=== PATIENT | male | born 1935 | race Caucasian/White ===

== ENCOUNTER 2017-11-28 11:06 | Inpatient (IN) | payer MEDICARE, BC ==
[~2017-11-28] VITALS: Ht 165.1 cm; Wt 70.3 kg
[~2017-11-28 11:06] MED LIST: AMLO5TAB4 PO; ARMO150T2 PO; ATOR20TA PO; CALC-167 PO; CYAN500T4 PO; FURO20TA4 PO; POTA-88 PO; RAMI10CA PO; TRAM50TA2 PO; TRAZ-182 PO; WARF3TAB29 PO
--- NOTE | 2017-11-28 11:15 | NUR ---
R knee pain s/p near syncopal episode last night, denies any neck or back pain, NAD NOTED, VSS, Resp even and unlabored, pt was put on monitor, waiting for md mcneal.
[2017-11-28 11:56] LABS: BASOPHILS % (AUTO) 0.2 % (0.0-2.0); EOSINOPHILS % (AUTO) 0.1 % (0.0-6.0); HEMATOCRIT 40 % (39-51); HEMOGLOBIN 13.2 g/dL (13.5-17.5); LYMPHOCYTES # (AUTO) 1.1 /CMM (0.8-4.8); LYMPHOCYTES % (AUTO) 15.5 % (20.0-44.0); MEAN CORPUSCULAR HEMOGLOBIN 33 PG (26.0-33.0); MEAN CORPUSCULAR HGB CONC 33 g/dl (31.0-36.0); MEAN CORPUSCULAR VOLUME 100 fL (80-96); MONOCYTES # (AUTO) 0.7 /CMM (0.1-1.30); MONOCYTES % (AUTO) 9.8 % (2.0-12.0); NEUTROPHILS # (AUTO) 5.3 /CMM (1.8-8.9); NEUTROPHILS % (AUTO) 74.4 % (43.0-81.0); PLATELET COUNT (AUTO) 177 /CMM (150-450); RDW COEFFICIENT OF VARIATION 12.8 (11.5-15.0); RED BLOOD CELL COUNT(AUTO) 3.99 MIL/uL (4.5-6.0); WHITE BLOOD COUNT (AUTO) 7.1 K/uL (4.3-11.0)
[2017-11-28] MEDS ORDERED: IV NS 0.9% 500 ML BAG IV ONE (12:00)
[2017-11-28 12:04] LABS: CARBON DIOXIDE 29 mmol/L (21-32); CHLORIDE 102 mmol/L (98-107); CREATININE 0.8 mg/dL (0.6-1.3); GLUCOSE 195 mg/dL (74-106); POTASSIUM 3.9 mmol/L (3.5-5.1); SODIUM SERUM 138 mmol/L (136-145); UREA NITROGEN, BLOOD 27 mg/dL (7-18)
[2017-11-28 12:08] LABS: INR 1.93 (0.85-1.15)
[2017-11-28 12:13] LABS: TROPONIN I < 0.017 ng/mL (0.00-0.056)
--- NOTE | 2017-11-28 13:55 | NUR ---
PAGED [employer] FOR PANEL - BINDING BENCH WORKER JELLY TERAN
[2017-11-28] MEDS ORDERED: KETOROLAC TROMETHAMINE INJ 30 MG/ML VIAL IV ONE (14:30)
[2017-11-28] MEDS ORDERED: KETOROLAC TROMETHAMINE 15 MG/ML VIAL ONE (14:42)
[2017-11-28] MEDS ORDERED: PIOG15TA8 PO (14:51)
[2017-11-28] MEDS ORDERED: D AM PO (14:51)
[2017-11-28] MEDS ORDERED: SILO8CAP PO (14:51)
[2017-11-28] MEDS ORDERED: CALC-475 PO (14:56)
[2017-11-28] MEDS ORDERED: CYAN100010 PO (14:56)
[2017-11-28] MEDS ORDERED: METF500T6 PO (14:56)
[2017-11-28] MEDS ORDERED: RAMI10CA PO (14:56)
[2017-11-28] MEDS ORDERED: TRAM50TA2 PO (14:56)
[2017-11-28] MEDS ORDERED: WARF4TAB41 PO (14:57)
[2017-11-28 15:00] VITALS: BP 128/67
--- NOTE | 2017-11-28 15:20 | NUR ---
OPTICAL LABORATORY TECHNICIAN NOTES PATIENT RECEIVED AWAKE ALERT AND VERBALLY RESPONSIVE, ABLE TO MAKE NEEDS KNOWN. RESPIRATIONS EVEN AND UNLABORED, DENIES ANY PAIN OR DISCOMFORT AT THIS TIME. IV ACCESS TO LEFT HAND PATENT AND INTACT NO REDNESS OR INFILTRATION NOTED. JELLY TERAN SWITCH TECHNICIAN AWARE OF PTS ARRIVAL, WILL CONTINUE TO CARRY OUT ADMISSION ORDERS. PT ORIENTED TO ROOM AND UNIT AND USE OF CALL LIGHT. PICTURES OF SKIN AND TAKEN AND PLACED IN CHART
[2017-11-28] MEDS ORDERED: ACETAMINOPHEN 325 MG TABLET PO PRN (15:30)
[2017-11-28] MEDS ORDERED: Z GUARD REMEDY 2 OZ OINT TP PRN (15:30)
[2017-11-28] MEDS ORDERED: MAGNESIUM HYDROXIDE 30 ML UDC PO PRN (15:30)
[2017-11-28] MEDS ORDERED: ONDANSETRON HCL/PF 4 MG/2 ML VIAL IVP PRN (15:30)
[2017-11-28] MEDS ORDERED: MAG HYDROX/AL HYDROX/SIMETH 30 ML UDC PO PRN (15:30)
[2017-11-28] MEDS: CYANOCOBALAMIN 500 MCG TABLET PO SCH (18:20)
[2017-11-28] MEDS: WARFARIN SODIUM 2 MG TABLET PO SCH (18:24)
[2017-11-28] MEDS: CALCIUM CARB 600MG /VIT D 1 EACH TABLET PO SCH (18:24)
--- NOTE | 2017-11-28 19:20 | NUR ---
TELE/RN OPENING NOTES PT RECEIVED AWAKE, RESTING IN BED. A/OX3. ON ROOM AIR, BREATHING EVEN AND UNLABORED. DENIES SOB AT THIS TIME. NOTES PAIN TO RIGHT LEG "04/03". REQUESTING PAIN MEDICATION. IV TO RIGHT HAND PATENT AND INTACT. BED IN LOW/LOCKED POSITION WITH CALL LIGHT IN REACH. SIDE RAILS UPX3 AND BED ALARM ON FOR SAFETY. WILL CONTINUE TO MONITOR
--- NOTE | 2017-11-28 19:40 | NUR ---
RN CLOSING NOTES PT AWAKE ALERT AND VERBALLY RESPONSIVE, ABLE TO MAKE NEEDS KNOWN. RESPIRATIONS EVEN AND UNLABORED, DENIES ANY PAIN OR DISCOMFORT AT THIS TIME. IV ACCESS TO LEFT HAND PATENT AND INTACT NO REDNESS OR INFILTRATION NOTED. PT ORIENTED TO ROOM AND UNIT AND USE OF CALL LIGHT. PICTURES OF SKIN AND TAKEN AND PLACED IN CHART, KEPT CLEAN DRY AND COMFORTABLE, WILL CONTINUE TO MONITOR, ENDORSED TO NEXT SHIFT FOR CONTINUITY OF CARE
[2017-11-28] MEDS: HYDROCODONE/APAP 10/325MG 1 EA TABLET PO PRN (19:58)
[2017-11-28 20:00] VITALS: BP 141/67
--- NOTE | 2017-11-28 20:00 | NUR ---
TELE/RN NOTES PT C/O PAIN TO RIGHT LEG "04/03". ADMINISTERED PRN NORCO 10/325MG PO ORDERED.
[2017-11-29] VITALS: BP 127/66
[2017-11-29 04:00] VITALS: BP 148/70
[2017-11-29] MEDS: HYDROCODONE/APAP 10/325MG 1 EA TABLET PO PRN (06:29)
--- NOTE | 2017-11-29 06:43 | NUR ---
TELE/RN NOTES PT C/O PAIN TO RIGHT LEG. ADMINISTERED PRN NORCO 10/325 ORDERED. NEW IV INSERTED TO RIGHT HAND #22.
--- NOTE | 2017-11-29 06:50 | NUR ---
TELE/RN CLOSING NOTES PT ASLEEP, EASILY AROUSABLE TO NAME. A/OX2-3, FORGETFUL AT TIMES. REMAINS ON ROOM AIR, BREATHING EVEN AND UNLABORED. DENIES SOB AND PAIN AT THIS TIME. IV TO RIGHT HAND PATENT AND INTACT. TELE MONITOR SHOWS A.FIB CONTROLLED WITH BBB AND PVC'S, HR 74. NO SIGNIFICANT CHANGES OVERNIGHT. KEPT PT COMFORTABLE DURING SHIFT. ALL NEEDS MET. ENCOURAGED PO INTAKE. BED IN LOW/LOCKED POSITION WITH CALL LIGHT IN REACH. SIDE RAILS UPX3 AND BED ALARM ON FOR SAFETY. WILL ENDORSE TO DAY SHIFT RN BLANCA
[2017-11-29 07:12] LABS: BASOPHILS % (AUTO) 0.1 % (0.0-2.0); EOSINOPHILS % (AUTO) 1.1 % (0.0-6.0); HEMATOCRIT 39 % (39-51); HEMOGLOBIN 12.9 g/dL (13.5-17.5); LYMPHOCYTES # (AUTO) 2.3 /CMM (0.8-4.8); LYMPHOCYTES % (AUTO) 29.7 % (20.0-44.0); MEAN CORPUSCULAR HEMOGLOBIN 35 PG (26.0-33.0); MEAN CORPUSCULAR HGB CONC 34 g/dl (31.0-36.0); MEAN CORPUSCULAR VOLUME 103 fL (80-96); MONOCYTES % (AUTO) 13.3 % (2.0-12.0); NEUTROPHILS # (AUTO) 4.2 /CMM (1.8-8.9); NEUTROPHILS % (AUTO) 55.8 % (43.0-81.0); PLATELET COUNT (AUTO) 153 /CMM (150-450); RDW COEFFICIENT OF VARIATION 13.8 (11.5-15.0); RED BLOOD CELL COUNT(AUTO) 3.73 MIL/uL (4.5-6.0); WHITE BLOOD COUNT (AUTO) 7.6 K/uL (4.3-11.0)
[2017-11-29 07:22] LABS: ALANINE AMINOTRANSFERASE 26 U/L (12-78); ALBUMIN 3.4 g/dL (3.4-5.0); ALKALINE PHOSPHATASE 73 U/L (46-116); ASPARTATE AMINOTRANSFERASE 26 U/L (15-37); BILIRUBIN,TOTAL 1.5 mg/dL (0.2-1.0); CALCIUM, SERUM 8.5 mg/dL (8.5-10.1); CARBON DIOXIDE 30 mmol/L (21-32); CHLORIDE 104 mmol/L (98-107); CREATININE 0.9 mg/dL (0.6-1.3); GLUCOSE 150 mg/dL (74-106); PHOSPHORUS 2.8 mg/dL (2.5-4.9); POTASSIUM 3.6 mmol/L (3.5-5.1); SODIUM SERUM 140 mmol/L (136-145); TOTAL PROTEIN, SERUM 6.6 g/dL (6.4-8.2); UREA NITROGEN, BLOOD 23 mg/dL (7-18)
--- NOTE | 2017-11-29 07:26 | NUR ---
RN OPENING NOTES PT ASLEEP EASILY AROUSABLE DURING CARE AND VERBALLY RESPONSIVE, ABLE TO MAKE NEEDS KNOWN. RESPIRATIONS EVEN AND UNLABORED, DENIES ANY PAIN OR DISCOMFORT AT THIS TIME. IV ACCESS TO RIGHT HAND PATENT AND INTACT NO REDNESS OR INFILTRATION NOTED. PT ORIENTED TO ROOM AND UNIT AND USE OF CALL LIGHT. KEPT CLEAN DRY AND COMFORTABLE, WILL CONTINUE TO MONITOR
[2017-11-29 07:30] LABS: CHOLESTEROL 82 mg/dL (<200); HDL CHOLESTEROL 49 mg/dL (40-60); LDL 34 mg/dL (0-99); TRIGLYCERIDES 41 mg/dL (30-150)
[2017-11-29 08:00] VITALS: BP 107/65
[2017-11-29] MEDS: CALCIUM CARB 600MG /VIT D 1 EACH TABLET PO SCH (08:24)
[2017-11-29] MEDS: PIOGLITAZONE HCL 15 MG TABLET PO SCH (08:25)
[2017-11-29] MEDS: CYANOCOBALAMIN 500 MCG TABLET PO SCH (08:25)
[2017-11-29] MEDS: ATORVASTATIN 10 MG TABLET PO SCH (08:25)
[2017-11-29] MEDS: AMLODIPINE BESYLATE 5 MG TABLET PO SCH (09:00)
[2017-11-29] MEDS: RAMIPRIL 5 MG CAPSULE PO SCH (09:00)
[2017-11-29] MEDS ORDERED: Medication Not On Formulary EA (Silodosin (Rapaflo) 8 MG) PO SCH (09:00)
[2017-11-29] MEDS ORDERED: DEXTROAMPHETAMINE SULFATE 5 MG PO SCH (09:00)
[2017-11-29 13:29] LABS: INR 2.17 (0.87-1.13)
[2017-11-29] MEDS: HYDROCODONE/APAP 5/325MG 1 EACH TABLET PO PRN ×2 (15:08→20:00)
--- NOTE | 2017-11-29 15:30 | NUR ---
RN NOTES/ CT OF HEAD FOLLOW-UP RN CALLED RADIOLOGY TO FOLLOW-UP REGARDING CT OF HEAD. PER RADIOLOGY THEY ARE DOING EMERGENT CASES IN ER. CT TO BE DONE SOON POSSIBLE.
[2017-11-29 16:00] VITALS: BP 119/79
[2017-11-29] MEDS ORDERED: WARFARIN SODIUM 1 MG TABLET PO SCH (17:00)
--- NOTE | 2017-11-29 17:28 | NUR ---
Patient is alert,he lives at home with . Prior to admission, he was ambulatroy and independent with adl's. He use a walker as needed. No homehealth reported. Family is involved with curreNt plan of care. Patient is a good candidate for ARU per PT, will discuss with patient. Addendum: 11/29/17 at 1729 by CHESTER BURRIS RN Amended: Links added.
--- NOTE | 2017-11-29 17:29 | NUR ---
Patient is alert,he lives at home with . Prior to admission, he was ambulatory and independent with adl's. He use a walker as needed. No homehealth reported. Family is involved with current plan of care. Patient is a good candidate for ARU per PT, will discuss with patient. Addendum: 11/29/17 at 1729 by CHESTER BURRIS RN Amended: Links added.
--- NOTE | 2017-11-29 18:20 | NUR ---
Spoke with patient,discussed dc planning options. Patient prefer to go to ARU when discharge. ARU Referral sent to Ngozi MCGINNIS. Addendum: 11/29/17 at 1822 by CHESTER BURRIS RN Amended: Links added.
--- NOTE | 2017-11-29 18:37 | NUR ---
RN CLOSING NOTES PT AWAKE ALERT AND VERBALLY RESPONSIVE, ABLE TO MAKE NEEDS KNOWN. RESPIRATIONS EVEN AND UNLABORED, VERBALIZES PAIN UPON MOVEMENT, PAIN MEDICATION ADMINISTERED PRN. IV ACCESS TO RIGHT HAND PATENT AND INTACT NO REDNESS OR INFILTRATION NOTED. PT ORIENTED TO ROOM AND UNIT AND USE OF CALL LIGHT. KEPT CLEAN DRY AND COMFORTABLE, WILL CONTINUE TO MONITOR, AND WILL ENDORSE TO NEXT SHIFT FOR CONTINUITY OF CARE
--- NOTE | 2017-11-29 19:00 | NUR ---
FLORICULTURE TEACHER OPENING NOTE Patient was seen sitting up in bed AAOx3, breathing on RA with no SOB, and no signs of acute distress. Telemonitor shows a-fib with bundle branch block, HR in the 70s. SL 22g IV in the right hand is intact and patent. Assisted patient with use of the urinal (125 ml out clear, dark yellow). Patient complains of pain in the right knee/upper leg with movement (s/p recent fall); will provide Reedy when due. Bed is in the low/locked position, two side rails up, and call flores within reach. Patient educated on use of the call flores. Patient has no immediate needs at this time. Will continue to monitor.
[2017-11-29 20:00] VITALS: BP 126/74
--- NOTE | 2017-11-29 20:00 | NUR ---
LIME MIXER NOTE - [place] Patient requested [place] for right knee and right upper leg pain (s/p recent fall). Patient rates his pain at an 8/10 with movement and repositioning in bed. PO [place] 5/325mg was given as ordered for prn use. Vital signs stable. Will continue to monitor.
[2017-11-30] VITALS: BP 148/77
[2017-11-30 04:00] VITALS: BP_SYST 111; BP_SYST 132; BP_DIAS 68; BP_DIAS 69
--- NOTE | 2017-11-30 06:50 | NUR ---
PLATE SHOP HELPER CLOSING NOTE Patient was seen sleeping in bed but awoke easily to name. He is AAOx2, breathing on RA with no SOB, and currently no signs of acute distress. Telemonitor shows a-fib with BBB, HR in the 80s. Patient slept well overnight with no complications and remains in stable condition. Patient's only complaint is right knee pain, which is well controlled using PO [place]. IV in the right hand is intact and patent. Bed is low/locked, two side rails up, and call flores within reach. All patient needs have been addressed this shift. Patient care endorsed to day shift nurse.
[2017-11-30 08:00] VITALS: BP 146/76
--- NOTE | 2017-11-30 08:45 | NUR ---
MS RN NOTES RECEIVED PATIENT IN BED ALERT ORIENTED X 4. NO ACUTE DISTRESS NOTED. BREATHING UNLABORED. NO SOB NOTED. IV ACCESS PATENT AND INTACT, NO REDNESS OR SWELLING NOTED. SAFETY MEASURES IN PLACE. CALL LIGHT WITHIN REACH. WILL CONTINUE TO MONITOR ACCORDINGLY.
[2017-11-30] MEDS: PIOGLITAZONE HCL 15 MG TABLET PO SCH (08:59)
[2017-11-30] MEDS: ATORVASTATIN 10 MG TABLET PO SCH (08:59)
[2017-11-30] MEDS: CALCIUM CARB 600MG /VIT D 1 EACH TABLET PO SCH (08:59)
[2017-11-30] MEDS: CYANOCOBALAMIN 500 MCG TABLET PO SCH (08:59)
[2017-11-30] MEDS: RAMIPRIL 5 MG CAPSULE PO SCH (09:00)
[2017-11-30] MEDS: AMLODIPINE BESYLATE 5 MG TABLET PO SCH (09:00)
--- NOTE | 2017-11-30 14:27 | NUR ---
MS RN NOTES SEEN AND EVALUATED BY DR DON REYNA WITH NEW ORDERS MADE, NOTED AND CARRIED OUT.
[2017-11-30 16:00] VITALS: BP 139/61
[2017-11-30 17:55] LABS: INR 2.37 (0.87-1.13)
[2017-11-30] MEDS: WARFARIN SODIUM 2 MG TABLET PO SCH (18:09)
--- NOTE | 2017-11-30 18:15 | NUR ---
MS DISCHARGE NOTES PATIENT DISCHARGED TO [facility] WITH STABLE VITAL SIGNS. NO ACUTE DISTRESS NOTED. BREATHING UNLABORED. NO SOB NOTED. IV ACCESS REMOVED, NO BLEEDING , NO REDNESS OR SWELLING NOTED. DISCHARGE INSTRUCTIONS GIVEN TO THE PATIENT , VERBALIZED UNDERSTANDING. REPORT GIVEN TO MARIA FERNANDA OF [facility]. DISCHARGE PAPERS HANDED OVER TO EMT PERSONNEL. PATIENT PICKED UP VIA AMBULANCE IN A GURNEY ACCOMPANIED BY 2 EMT PERSONNEL IN STABLE CONDITION. ALL BELONGINGS ACCOUNTED FOR. AWARE OF THE TRANSFER.
== END 2017-11-30 18:23 | DRG 312 ==
LOC: ER 11:07 → TELE 14:46 → MED 11-30 12:38
PROVIDERS: ADMIT Nurse Practitioner Acute Care; ATTEND Nurse Practitioner Acute Care
DX: R55 Syncope and collapse (principal); N17.0 Acute kidney failure with tubular necrosis; I50.32 Chronic diastolic (congestive) heart failure; I45.2 Bifascicular block; I11.0 Hypertensive heart disease with heart failure; I48.2 Chronic atrial fibrillation; E11.9 Type 2 diabetes mellitus without complications; E78.5 Hyperlipidemia, unspecified; Z86.73 Personal history of transient ischemic attack (TIA), and cerebral infarction without residual deficits; Z79.01 Long term (current) use of anticoagulants; E86.0 Dehydration; M79.661 Pain in right lower leg; Z79.84 Long term (current) use of oral hypoglycemic drugs
CPT/HCPCS: 36415; 70450-TC; 71045-TC; 73502; 73562; 73700-TC; 80048-TC; 80053-TC; 80061-TC; 83735-TC; 83880; 84100-TC; 84443-TC; 84484-TC; 85025-TC; 85610-TC; 85730-TC; 87081-TC; 93307-TC; 93880-TC; 97110-TC; 97530-TC; A4606; J1885; J7040; Z7610

== ENCOUNTER 2018-10-23 16:59 | Emergency (ER) | payer MEDICARE, BC ==
[~2018-10-23] VITALS: Ht 162.6 cm; Wt 73.5 kg
[~2018-10-23 16:59] MED LIST changes: -ARMO150T2 PO; -CALC-167 PO; +CALC-475 PO; +CYAN100010 PO; -CYAN500T4 PO; +D AM PO; -FURO20TA4 PO; +METF-440 PO; +PIOG15TA8 PO; -POTA-88 PO; -RAMI10CA PO; +RAMI10CA69 PO; +SILO8CAP2 PO; -TRAZ-182 PO; +WARF4TAB41 PO
--- NOTE | 2018-10-23 17:00 | NUR ---
BIB RA 102 FROM HOME, RIGHT THIGH/HIP PAIN, S/P GLF,NO LOC. PATIENT A/OX3, NO VISIBLE INJURY NOTED, AT AND CAREGIVER AT BEDSIDE. ATTACHED TO THE MONITOR.
[2018-10-23] MEDS ORDERED: oxyCODONE/APAP (5/325 MG) 1 UDTAB TABLET ONE (17:51)
[2018-10-23] MEDS ORDERED: oxyCODONE/APAP (5/325 MG) 1 UDTAB TABLET PO ONE (18:00)
--- NOTE | 2018-10-23 18:58 | NUR ---
CALLED [facility] FOR MONICA PERRY PT.
[2018-10-23] MEDS ORDERED: SERT25TA PO (19:00)
[2018-10-23] MEDS ORDERED: LOSA50TA39 PO (19:00)
--- NOTE | 2018-10-23 19:00 | NUR ---
Per md's instruction, try to walk the patient to evaluate gait, walker ordered.
--- NOTE | 2018-10-23 19:17 | NUR ---
Endorsed to Leanna WILD for emmanuel.
--- NOTE | 2018-10-23 20:19 | NUR ---
LION PAGED, COMPONENT INSPECTOR.
--- NOTE | 2018-10-23 20:39 | NUR ---
PT TAKEN TO CT.
--- NOTE | 2018-10-23 20:40 | NUR ---
PT RETURNED FROM CT.
--- NOTE | 2018-10-23 20:47 | NUR ---
EXPLOSIVE OPERATOR FUSE AT BEDSIDE. LABS DRAWN FROM 20G LAC IV, SENT TO LAB.
--- NOTE | 2018-10-23 20:52 | NUR ---
EKG AT BEDSIDE.
[2018-10-23 20:54] LABS: WHITE BLOOD COUNT (AUTO) 7.8 K/uL (4.3-11.0)
[2018-10-23 20:55] LABS: BASOPHILS % (AUTO) 0.2 % (0.0-2.0); EOSINOPHILS % (AUTO) 0.4 % (0.0-6.0); HEMATOCRIT 40 % (39-51); HEMOGLOBIN 13.4 g/dL (13.5-17.5); LYMPHOCYTES # (AUTO) 1.9 /CMM (0.8-4.8); LYMPHOCYTES % (AUTO) 24.1 % (20.0-44.0); MEAN CORPUSCULAR HGB CONC 34 g/dl (31.0-36.0); MEAN CORPUSCULAR VOLUME 103 fL (80-96); MONOCYTES # (AUTO) 0.6 /CMM (0.1-1.30); MONOCYTES % (AUTO) 7.7 % (2.0-12.0); NEUTROPHILS # (AUTO) 5.3 /CMM (1.8-8.9); NEUTROPHILS % (AUTO) 67.6 % (43.0-81.0); PLATELET COUNT (AUTO) 138 /CMM (150-450); RED BLOOD CELL COUNT(AUTO) 3.83 MIL/uL (4.5-6.0)
[2018-10-23 21:12] LABS: CALCIUM, SERUM 9.2 mg/dL (8.5-10.1); CARBON DIOXIDE 33 mmol/L (21-32); CHLORIDE 103 mmol/L (98-107); CREATININE 0.9 mg/dL (0.6-1.3); GLUCOSE 155 mg/dL (74-106); SODIUM SERUM 142 mmol/L (136-145); UREA NITROGEN, BLOOD 26 mg/dL (7-18)
--- NOTE | 2018-10-23 22:15 | NUR ---
PT COMPLAINING OF PAIN, ER MD AWARE. WILL CONTINUE TO MONITOR.
--- NOTE | 2018-10-23 22:23 | NUR ---
CALLED NURSING SUP. FOR MS BED
[2018-10-23] MEDS ORDERED: FENTANYL PF 100MCG/2ML AMPUL IV ONE (22:30)
[2018-10-23] MEDS ORDERED: FENTANYL PF 100MCG/2ML AMPUL ONE (22:40)
--- NOTE | 2018-10-23 23:14 | NUR ---
CALLED JANET SALMERON MASKING MACHINE FEEDER, TRANSFERRED CALL TO
--- NOTE | 2018-10-23 23:18 | NUR ---
CALLED [facility] TO PRESENT PT FOR HLOC TRANSFER, [place] NOAH [place] [facility] [place]OB [place]ERS AT THIS TIME.
--- NOTE | 2018-10-23 23:28 | NUR ---
PATIENT REQUIRING HIGHER LEVEL OF CARE PER ER MD. AWAITING CT RESULTS AND ACCEPTANCE FROM TRAUMA FACILITY.
[2018-10-23] MEDS ORDERED: HYDROCODONE/APAP 5/325MG 1 EACH TABLET PO PRN (23:30)
[2018-10-23] MEDS ORDERED: Z GUARD REMEDY 2 OZ OINT TP PRN (23:30)
[2018-10-23] MEDS ORDERED: MAG HYDROX/AL HYDROX/SIMETH 30 ML UDC PO PRN (23:30)
[2018-10-23] MEDS ORDERED: ACETAMINOPHEN 325 MG TABLET PO PRN (23:30)
[2018-10-23] MEDS ORDERED: ONDANSETRON HCL/PF 4 MG/2 ML VIAL IVP PRN (23:30)
[2018-10-23] MEDS ORDERED: MAGNESIUM HYDROXIDE 30 ML UDC PO PRN (23:30)
[2018-10-23] MEDS ORDERED: MORPHINE SULFATE INJ 2 MG/ML DISP.SYRIN IV PRN (23:30)
[2018-10-23] MEDS ORDERED: ZOLPIDEM TARTRATE 5 MG TABLET PO PRN (23:30)
--- NOTE | 2018-10-23 23:31 | NUR ---
CALLED [facility], SPOKE WITH CHARGE NURSE ESTELLE, HE SAID HE WILL PRESENT IT TO THEIR TRAUMA SURGEON AND HE WILL CALL US BACK.
--- NOTE | 2018-10-23 23:51 | NUR ---
PT TAKEN TO CT VIA RYADIRA.
[2018-10-23] MEDS ORDERED: CT SWABBABLE VALVE TRANS SET 1 EA INFUS.SET MC ONE (23:52)
[2018-10-23] MEDS ORDERED: IOHEXOL-350 100 ML VIAL IV ONE (23:52)
[2018-10-23] MEDS ORDERED: IV NS 0.9% 250 ML IV ONE (23:53)
[2018-10-24 00:01] LABS: HEMOGLOBIN 12.6 g/dL (13.5-17.5)
--- NOTE | 2018-10-24 00:10 | NUR ---
[facility] ETA [id number]. TRIP# [id number].
--- NOTE | 2018-10-24 01:10 | NUR ---
REPORT GIVEN TO CHRIS RENEE FOR TRANSPORT.
--- NOTE | 2018-10-24 01:11 | NUR ---
ESTELLE DUPREE RN AT [facility] NOTIFIED PT LEAVING ER FOR TRANSPORT.
[2018-10-24 01:12] VITALS: BP 156/65
[2018-10-24] MEDS ORDERED: METFORMIN 500 MG TABLET PO SCH (08:00)
[2018-10-24] MEDS ORDERED: SERTRALINE HCL 25 MG TABLET PO SCH (09:00)
[2018-10-24] MEDS ORDERED: Medication Not On Formulary EA (Silodosin (Rapaflo) 8 MG) PO SCH (09:00)
[2018-10-24] MEDS ORDERED: LOSARTAN POTASSIUM 50 MG TABLET PO SCH (09:00)
[2018-10-24] MEDS ORDERED: AMLODIPINE BESYLATE 5 MG TABLET PO SCH (09:00)
[2018-10-24] MEDS ORDERED: ATORVASTATIN 10 MG TABLET PO SCH (22:00)
== END 2018-10-24 01:15 | disposition short-term general hospital (02) ==
LOC: ER 17:05 → MED 23:12 → UNDOADMIN 23:12 → ER 10-24 01:15
DX: S32.431A Displaced fracture of anterior column [iliopubic] of right acetabulum, initial encounter for closed fracture (principal); S32.591A Other specified fracture of right pubis, initial encounter for closed fracture; S36.892A Contusion of other intra-abdominal organs, initial encounter; I48.91 Unspecified atrial fibrillation; E78.5 Hyperlipidemia, unspecified; I11.0 Hypertensive heart disease with heart failure; I50.9 Heart failure, unspecified; E11.9 Type 2 diabetes mellitus without complications; Z88.8 Allergy status to other drugs, medicaments and biological substances; Z79.899 Other long term (current) drug therapy; Z85.828 Personal history of other malignant neoplasm of skin; Z86.73 Personal history of transient ischemic attack (TIA), and cerebral infarction without residual deficits; Z79.01 Long term (current) use of anticoagulants; Z79.84 Long term (current) use of oral hypoglycemic drugs; W01.0XXA Fall on same level from slipping, tripping and stumbling without subsequent striking against object, initial encounter; Y93.89 Activity, other specified; Y92.89 Other specified places as the place of occurrence of the external cause; Y99.8 Other external cause status
CPT/HCPCS: 36415; 71045; 73502; 73551; 73560; 73700 ×2; 75635; 80048; 84484; 85025; 85027; 85610; 86850; 87081; 93005; 96374; 99285; J3010; J7050; Q9967; 73552; G0378

== ENCOUNTER 2022-09-06 03:17 | Inpatient (IN) | payer BC, MEDICARE ==
[~2022-09-06] VITALS: Ht 165.1 cm; Wt 69.9 kg
[2022-09-06] VITALS (20 sets, daily range): BP systolic 83–161; BP diastolic 50–134
[~2022-09-06 03:17] MED LIST changes: -CALC-475 PO; -CYAN100010 PO; -D AM PO; +LOSA50TA39 PO; -PIOG15TA8 PO; +SERT25TA PO; -TRAM50TA2 PO; -WARF3TAB29 PO
--- NOTE | 2022-09-06 03:23 | NUR ---
[facility] (cousin)[phone]
[2022-09-06] MEDS ORDERED: ACETAMINOPHEN 650 MG/SUPP.RECT RC ONE ×2 (03:46→04:00)
[2022-09-06] MEDS ORDERED: CEFEPIME 1 GM VIAL ONE (03:54)
[2022-09-06] MEDS ORDERED: VANCOMYCIN 1 GM /D5W 250 ML PB IV ONE (03:54)
[2022-09-06] MEDS ORDERED: IV NS 0.9% 1,000 ML BAG IV ONE ×2 (04:00→06:00)
[2022-09-06] MEDS ORDERED: VANCOMYCIN 1 GM in IV D5W 250 ML IV ONE (04:00)
[2022-09-06] MEDS ORDERED: CEFEPIME 1 GM in IV D5W 50 ML IV ONE (04:00)
--- NOTE | 2022-09-06 04:05 | NUR ---
bxags930, from home, fever, cough, congestion, shivering, 02 90's. On 6 lpm via NC 02 sat 98%. Kept comfortable, will continue to monitor accordingly.
[2022-09-06 04:06] LABS: BASOPHILS % (AUTO) 0.2 % (0.0-2.0); EOSINOPHILS % (AUTO) 0.2 % (0.0-6.0); HEMATOCRIT 35 % (39-51); HEMOGLOBIN 11.7 g/dL (13.5-17.5); LYMPHOCYTES # (AUTO) 0.8 K/uL (0.8-4.8); LYMPHOCYTES % (AUTO) 11.1 % (20.0-44.0); MEAN CORPUSCULAR HGB CONC 33 g/dl (31.0-36.0); MEAN CORPUSCULAR VOLUME 101 fL (80-96); MONOCYTES # (AUTO) 0.2 K/uL (0.1-1.30); MONOCYTES % (AUTO) 3.7 % (2.0-12.0); NEUTROPHILS # (AUTO) 5.8 K/uL (1.8-8.9); NEUTROPHILS % (AUTO) 84.8 % (43.0-81.0); PLATELET COUNT (AUTO) 116 K/uL (150-450); RED BLOOD CELL COUNT(AUTO) 3.52 MIL/uL (4.5-6.0); WHITE BLOOD COUNT (AUTO) 6.8 K/uL (4.3-11.0)
--- NOTE | 2022-09-06 04:06 | NUR ---
covid, urine, and blood drawned and collected and sent to lab.
[2022-09-06 04:13] LABS: CALCIUM, SERUM 8.7 mg/dL (8.5-10.1); CARBON DIOXIDE 23 mmol/L (21-32); CHLORIDE 98 mmol/L (98-107); CREATININE 1.7 mg/dL (0.6-1.3); GLUCOSE 168 mg/dL (74-106); POTASSIUM 3.5 mmol/L (3.5-5.1); SODIUM SERUM 133 mmol/L (136-145); UREA NITROGEN, BLOOD 62 mg/dL (7-18)
[2022-09-06 04:16] LABS: BILIRUBIN,URINE NEGATIVE (NEGATIVE); COLOR,URINE YELLOW (YELLOW); LEUKOCYTE ESTERASE ,URINE 1+ (NEGATIVE); NITRITE, URINE NEGATIVE (NEGATIVE); PH,URINE 5.5 (5.0-8.0); PROTEIN,URINE 1+ mg/dl (NEGATIVE); UGLUCOSE NEGATIVE (NEGATIVE); UROBILINOGEN,URINE 0.2 EU/dL (0.2)
[2022-09-06 04:27] LABS: ALANINE AMINOTRANSFERASE 74 U/L (12-78); ALBUMIN 2.9 g/dL (3.4-5.0); ALKALINE PHOSPHATASE 156 U/L (46-116); ASPARTATE AMINOTRANSFERASE 95 U/L (15-37); BILIRUBIN,DIRECT 0.5 mg/dL (0.0-0.2); TOTAL PROTEIN, SERUM 6.2 g/dL (6.4-8.2)
[2022-09-06 04:40] LABS: BACTERIA,URINE Many /HPF (None Seen); SQUAMOUS EPITHELIAL CELL,UR Few /HPF (None Seen)
[2022-09-06] MEDS ORDERED: NOREPINEPHRINE 8 MG in IV NS 0.9% 250 ML IV ONE (06:00)
[2022-09-06] MEDS ORDERED: NOREPINEPHRINE 8MG/250ML RTU 250 ML IV ONE (06:26)
--- NOTE | 2022-09-06 07:57 | NUR ---
PT RESTING COMFORTABLY IN BED, VITALS ARE WITHIN NORMAL LIMITS.
[2022-09-06] MEDS ORDERED: DEXTROSE 50%-WATER 50 ML DISP.SYRIN IV PRN (08:30)
[2022-09-06] MEDS ORDERED: MAGNESIUM HYDROXIDE 30 ML UDC PO PRN (08:30)
[2022-09-06] MEDS ORDERED: ONDANSETRON HCL/PF 4 MG/2 ML VIAL IVP PRN (08:30)
[2022-09-06] MEDS ORDERED: MAG HYDROX/AL HYDROX/SIMETH 30 ML UDC PO PRN (08:30)
[2022-09-06] MEDS ORDERED: ACETAMINOPHEN 325 MG TABLET PO PRN (08:30)
[2022-09-06] MEDS ORDERED: Z GUARD REMEDY 4 OZ OINT TP PRN (08:30)
[2022-09-06] MEDS ORDERED: ZOLPIDEM TARTRATE 5 MG TABLET PO PRN (08:30)
[2022-09-06] MEDS ORDERED: NOREPINEPHRINE 8 MG in IV NS 0.9% 242 ML IV PRN ×2 (08:30→12:00)
--- NOTE | 2022-09-06 10:02 | NUR ---
GOT BED 261 ADMITTING INFORMED.
--- NOTE | 2022-09-06 11:32 | NUR ---
REPORT GIVEN TO HEIDI WILD ICU ROOM 262 FOR BLANCA.
--- NOTE | 2022-09-06 11:50 | NUR ---
PATIENT TRANSFERED AND ADMITTED PER ACLS [facility]
[2022-09-06] MEDS: HEPARIN SODIUM, PORCINE 5000 UNITS/1 ML VIAL SQ SCH ×2 (12:42→22:04)
[2022-09-06] MEDS: PANTOPRAZOLE 40 MG VIAL IV SCH (12:42)
[2022-09-06] MEDS: BLOOD SUGAR DIAGNOSTIC 1 EACH STRIP IN SCH ×3 (12:45→22:36)
[2022-09-06] MEDS: INSULIN REGULAR, HUMAN 100 UNIT/ML 3 ML VIAL SQ PRN (13:02)
[2022-09-06] MEDS: IV D5/ 0.9% NACL 1,000 ML IV PRN (13:33)
--- NOTE | 2022-09-06 17:35 | NUR ---
ICU/RN BLOOD SUGAR 137. PT UNABLE TO SWALLOW SAFELY. ELECTROTYPE SERVICER AMY NOTIFIED, PT PLACED NPO UNTIL SWALLOW EVAL. INSULIN HELD.
--- NOTE | 2022-09-06 17:47 | NUR ---
ICU/RN PT'S SISTER ROSALIA MOONEY [phone] PER PT'S COUSIN IN LAW, PT DOES NOT HAVE CHILDREN AND HIS IS SICK, CURRENTLY ADMITTED TO [facility] AND UNABLE TO MAKE ANY MEDICAL DECISION FOR PT. SISTER IS NEXT OF KIN.
--- NOTE | 2022-09-06 17:52 | NUR ---
ICU/RN BC POSITIVE FOR GRAM VARIBLE RODS. WHEEL OF FORTUNE DEALER AMY NOTIFIED.
--- NOTE | 2022-09-06 19:50 | NUR ---
PLANOGRAMMER OPENING NOTE PT RECEIVED IN BED, ASLEEP, LETHARGIC BUT A/O X2; ORIENTED TO SELF AND ; UNABLE TO STATE YEAR, NOT ORIENTED TO PLACE AND SITUATION; ABLE TO FOLLLOW SIMPLE COMMANDS AND MAKE NEEDS KNOWN. PT ON 4L NC WITH CURRENT O2SAT OF 95%; NO S/S OF RESP DISTRESS, NO SOB, NON-LABORED AND EQUAL BREATHING. PT ATTACHED TO BEDSIDE MONITOR, AFIB CONTROLLED WITH V-PACING, CURRENT HR OF 67. TRAVIS INTACT AND PATENT, DRAINING CLEAR AND YELLOW URINE. IV ACCESS ON RAC 20G, LEFT HAND 20G, AND RIGHT TLC WITH D5NS INFUSING AT 75 ML/HR; LEVO CURRENTLY OFF WITH BP SUSTAINED WNL. BED IN LOWEST POSITION, CALL LIGHT WITHIN REACH, SIDE RAILS UP X3. WILL CONTINUE TO MONITOR THROUGHOUT THE NIGHT.
--- NOTE | 2022-09-06 22:53 | NUR ---
RN NOTE RT AT BEDSIDE TO OBTAINED SPUTUM CX; LAB CALLED FOR PICKUP
[2022-09-07] VITALS (19 sets, daily range): BP systolic 90–149; BP diastolic 41–128
[2022-09-07] MEDS: IV D5/ 0.9% NACL 1,000 ML IV PRN (01:57)
[2022-09-07] MEDS: CEFEPIME 2 GM in IV D5W 100 ML IV SCH (01:57)
[2022-09-07] MEDS ORDERED: VANCOMYCIN HCL 0.75 GM in IV D5W 250 ML IV SCH (04:00)
[2022-09-07 04:56] LABS: BASOPHILS % (AUTO) 0.3 % (0.0-2.0); EOSINOPHILS % (AUTO) 0.1 % (0.0-6.0); HEMATOCRIT 27 % (39-51); HEMOGLOBIN 8.9 g/dL (13.5-17.5); LYMPHOCYTES # (AUTO) 0.8 K/uL (0.8-4.8); LYMPHOCYTES % (AUTO) 9.6 % (20.0-44.0); MEAN CORPUSCULAR HGB CONC 33 g/dl (31.0-36.0); MEAN CORPUSCULAR VOLUME 101 fL (80-96); MONOCYTES # (AUTO) 0.9 K/uL (0.1-1.30); MONOCYTES % (AUTO) 10.3 % (2.0-12.0); NEUTROPHILS # (AUTO) 6.9 K/uL (1.8-8.9); NEUTROPHILS % (AUTO) 79.7 % (43.0-81.0); PLATELET COUNT (AUTO) 72 K/uL (150-450); RED BLOOD CELL COUNT(AUTO) 2.66 MIL/uL (4.5-6.0); WHITE BLOOD COUNT (AUTO) 8.7 K/uL (4.3-11.0)
[2022-09-07 05:47] LABS: CALCIUM, SERUM 7.1 mg/dL (8.5-10.1); CARBON DIOXIDE 19 mmol/L (21-32); CHLORIDE 111 mmol/L (98-107); GLUCOSE 148 mg/dL (74-106); MAGNESIUM 1.9 mg/dL (1.8-2.4); PHOSPHORUS 1.6 mg/dL (2.5-4.9); SODIUM SERUM 139 mmol/L (136-145); UREA NITROGEN, BLOOD 40 mg/dL (7-18)
[2022-09-07 05:55] LABS: LDL 11 mg/dL (0-99); TRIGLYCERIDES 76 mg/dL (30-150)
[2022-09-07 06:06] LABS: HDL CHOLESTEROL 10 mg/dL (40-60)
[2022-09-07 06:13] LABS: CHOLESTEROL 35 mg/dL (<200)
[2022-09-07 06:16] LABS: LYMPHOCYTES % (MANUAL) 12 % (16-48); MONOCYTES % (MANUAL) 4 % (0-11.0); NEUTROPHILS % (MANUAL) 84 (42-76)
--- NOTE | 2022-09-07 06:46 | NUR ---
RN NOTE RECEIVED CRITICAL FROM LAB. PROCALCITONIN 8.86, NOTED TO BE TRENDING UP FROM 5.68. QUYEN YIP NOTIFIED WITH NO NEW ORDERS.
--- NOTE | 2022-09-07 06:47 | NUR ---
POWDERED METAL SUPERVISOR CLOSING NOTE PT REMAINS IN BED, ASLEEP BUT EASILY AROUSABLE; A/O X2, CALM, COOPERATIVE. CONTINUES TO BE ON 4L NC WITH O2SAT RANGING FROM 94%-100% THROUGHOUT THE NIGHT WITH NO S/S OF RESP DISTRESS. ATTACHED TO BEDSIDE MONITOR, AFIB CONTROLLED WITH V-PACING; HR RANGED FROM 60-78. TRAVIS INTACT AND PATENT, DRAINING CLEAR AND YELLOW URINE. RIGHT FEMORAL TLC INTACT AND PATENT, FLUSHES EASILY WITH NO RESISTANCE; D5NS INFUSING AT 75 ML/HR; LEVO REMAINS OFF WITH BP MAINTAINED WNL. ALL DUE MEDS ADMINISTERED DURING THE NIGHT. BED IN LOWEST POSITION, CALL LIGHT WITHIN REACH, SIDE RAILS UP X3. WILL ENDORSE TO DAYSHIFT NURSE TO CONTINUE CARE.
--- NOTE | 2022-09-07 08:02 | NUR ---
WOUND CARE CONSULT: PT PRESENTS WITH AREAS OF SKIN DISCOLORATION, ESPECIALLY UPPER EXTREMITIES AND BLACK DISCOLORATION/LESION TO RT DISTAL GREAT TOE, PRESENT ON ADMISSION. PT INCONTINENT OF LOOSE STOOL WITH SOME BLOOD NOTED. DISCUSSED SKIN PROTECTION WITH NURSING STAFF. DR TIRADO CALLED FOR DPM CONSULT. TRAVIS CATH NOTED.MD IN AGREEMENT WITH PLAN OF CARE.
[2022-09-07] MEDS: PANTOPRAZOLE 40 MG VIAL IV SCH (08:21)
[2022-09-07] MEDS: BLOOD SUGAR DIAGNOSTIC 1 EACH STRIP IN SCH ×4 (08:21→21:48)
[2022-09-07] MEDS: INSULIN REGULAR, HUMAN 100 UNIT/ML 3 ML VIAL SQ PRN ×2 (08:28→17:44)
--- NOTE | 2022-09-07 09:20 | NUR ---
MD OCHOA WAS NOTIFIED OF SMALL AMOUNT OF SOFT/LOOSE STOOL WITH SOME/SCANT AMOUNT OF BLOOD. NO NEW ORDER MADE. MD ALSO AWARE OF RECENT CBC/BMP RESULTS.
[2022-09-07] MEDS: POTASSIUM CL. PREMIX PERIPHER. 50 ML IV SCH ×6 (11:01→16:55)
--- NOTE | 2022-09-07 12:35 | NUR ---
SWALLOW EVALUATION BY SPEECH THERAPIST NOW.
[2022-09-07] MEDS ORDERED: INSU100I47 SQ (13:09)
[2022-09-07] MEDS ORDERED: APIX5TAB PO (13:09)
[2022-09-07] MEDS: IV NS 0.9% 1,000 ML IV SCH (14:46)
--- NOTE | 2022-09-07 15:00 | NUR ---
TELE ADMITTING NOTES: ADMITTED 87YO MALE PT FROM ICU, ENDORSED BY TORRI ALBARRAN. PT ALERT 1-2 AND ABLE TO MAKE NEEDS KNOWN, NO SOB OR CARDIAC DISTRESS NOTED. ON TELE MONITOR WITH CURRENT READING A FIB @70BPM. VS CHECKED AND WITHIN NORMAL LIMITS. O2 INHALATION @2LPM VIA NC AND SATURATING 99%. IV ACCESS ON R HAND GAUGE 22, RAC GAUGE 20, RIGHT FEMORAL PICC LINE, PATENT, INTACT AND INFUSING NS 1L @ 75ML/HR. SKIN ASSESSMENT DONE NOTED WITH SCABS IN HIS CHIN, RIGHT SHOULDER, BILATERAL ARMS SKIN DISCOLORATION, DTI ON R GREAT TOE. TRAVIS CATHETER NOTED DRAINING CLEAR YELLOW COLORED URINE BY GRAVITY. BELONGINGS 1 RED T-SHIRT. ORIENTED TO UNIT, ROOM MATE AND STAFFS. SAFETY MEASURES INITIATED: BED LOCKED AND IN LOWEST POSITION, SIDE RAILS UP X 3 CALL LIGHT IN EASY REACH FOR HELP. WILL MONITOR PT ACCORDINGLY.
--- NOTE | 2022-09-07 15:02 | NUR ---
CARTER-TORRI PICKED UP PATIENT FOR TELE UNIT TRANSFER, BEDSIDE REPORT GIVEN TO DIXON FOR CONTINUITY OF CARE,
[2022-09-07] MEDS ORDERED: K PHOS NEUTRAL 250 MG TABLET PO ONE (16:00)
--- NOTE | 2022-09-07 19:24 | NUR ---
TELE CLOSING NOTES: PT ALERT 1-2 AND ABLE TO MAKE NEEDS KNOWN, NO SOB OR CARDIAC DISTRESS NOTED. ON TELE MONITOR WITH CURRENT READING A FIB @88BPM. O2 INHALATION @2LPM VIA NC AND SATURATING 99%. IV ACCESS ON R HAND GAUGE 22, RAC GAUGE 20, RIGHT FEMORAL PICC LINE, PATENT, INTACT AND INFUSING NS 1L @ 75ML/HR. PT ATE DINNER 100%, NO FEVER, NO COUGHING NOTED.TRAVIS CATHETER NOTED DRAINING CLEAR YELLOW COLORED URINE BY GRAVITY.SAFETY MEASURES MAINTAINED: BED LOCKED AND IN LOWEST POSITION, SIDE RAILS UP X 3 CALL LIGHT IN EASY REACH FOR HELP. WILL MONITOR PT ACCORDINGLY.
--- NOTE | 2022-09-07 19:30 | NUR ---
GRINDING AND POLISHING LABORER OPENING NOTES: RECEIVED PATIENT AWAKE IN BED. PATIENT IS A/O TIMES 1-2 AND ABLE TO MAKE NEEDS KNOWN. NO SOB NOTED. NO CARDIAC DISTRESS NOTED. ON TELE MONITOR READING CONTROLLED A FIB, HR=70. ON 02 INHALATION VIA NASAL CANNULA @2LPM , O2 SAT NOTED 97%. IV ACCESS ON R HAND GAUGE 22, RAC GAUGE 20, RIGHT FEMORAL PICC LINE, PATENT, INTACT AND FLUSHING WELL. IV HYDRATION OF NS @ 75ML/HR RUNNING.TRAVIS CATHETER INTACT AND DRAINING CLEAR YELLOW COLORED URINE BY GRAVITY. ALL SAFETY MEASURES MAINTAINED: BED LOCKED AND IN LOWEST POSITION, SIDE RAILS UP X 3 CALL LIGHT IN EASY REACH . WILL CONTINUE TO MONITOR CLOSELY.
--- NOTE | 2022-09-07 21:51 | NUR ---
RN NOTES 2199 BLOOD SUGAR CHECK RESULT NOTED 135.WILL HELD INSULIN FOR POOR APPETITE AND PATIENT IS SLEEPY.
[2022-09-08] VITALS: BP 109/59
[2022-09-08] MEDS: CEFEPIME 2 GM in IV D5W 100 ML IV SCH ×2 (01:11→20:46)
[2022-09-08] MEDS: IV NS 0.9% 1,000 ML IV SCH (03:15)
[2022-09-08 04:00] VITALS: BP 120/84
[2022-09-08] MEDS ORDERED: VANCOMYCIN 1.25 GM in IV D5W 250 ML IV SCH (04:00)
[2022-09-08 05:49] LABS: BASOPHILS % (AUTO) 0.1 % (0.0-2.0); EOSINOPHILS % (AUTO) 0.3 % (0.0-6.0); HEMATOCRIT 30 % (39-51); LYMPHOCYTES # (AUTO) 1.1 K/uL (0.8-4.8); LYMPHOCYTES % (AUTO) 16.4 % (20.0-44.0); MEAN CORPUSCULAR HGB CONC 34 g/dl (31.0-36.0); MEAN CORPUSCULAR VOLUME 99 fL (80-96); MONOCYTES # (AUTO) 0.8 K/uL (0.1-1.30); NEUTROPHILS # (AUTO) 5.1 K/uL (1.8-8.9); NEUTROPHILS % (AUTO) 72.2 % (43.0-81.0); PLATELET COUNT (AUTO) 113 K/uL (150-450); RED BLOOD CELL COUNT(AUTO) 3.02 MIL/uL (4.5-6.0)
[2022-09-08] MEDS: BLOOD SUGAR DIAGNOSTIC 1 EACH STRIP IN SCH ×4 (06:05→21:32)
--- NOTE | 2022-09-08 06:28 | NUR ---
COMMUNICATIONS TECH CLOSING NOTES: PATIENT AWAKE IN BED. PATIENT IS A/O TIMES 1-2 AND ABLE TO MAKE NEEDS KNOWN. NO SOB NOTED. NO CARDIAC DISTRESS NOTED. ON TELE MONITOR READING CONTROLLED A FIB, HR=80 ON 02 INHALATION VIA NASAL CANNULA @2LPM , O2 SAT NOTED 98%. IV ACCESS ON R HAND GAUGE 22, RAC GAUGE 20, RIGHT FEMORAL PICC LINE, PATENT, INTACT AND FLUSHING WELL. IV HYDRATION OF NS @ 75ML/HR RUNNING.TRAVIS CATHETER INTACT AND DRAINING CLEAR YELLOW COLORED URINE BY GRAVITY. URINE OUTPUT NOTED 650 ML. ALL DUE MEDS GIVEN ORDERED. BLOOD SUGAR CHECKED FOR MORNING NOTED 144. HELD INSULIN FOR BEING SLEEPY AND NOT EATING. ALL SAFETY MEASURES MAINTAINED: BED LOCKED AND IN LOWEST POSITION, SIDE RAILS UP X 3 CALL LIGHT IN EASY REACH . WILL ENDORSE FOR BLANCA.
[2022-09-08 06:40] LABS: CALCIUM, SERUM 8.2 mg/dL (8.5-10.1); CARBON DIOXIDE 22 mmol/L (21-32); CHLORIDE 110 mmol/L (98-107); CREATININE 1.1 mg/dL (0.6-1.3); GLUCOSE 168 mg/dL (74-106); MAGNESIUM 1.9 mg/dL (1.8-2.4); PHOSPHORUS 1.8 mg/dL (2.5-4.9); POTASSIUM 3.3 mmol/L (3.5-5.1); SODIUM SERUM 141 mmol/L (136-145); UREA NITROGEN, BLOOD 34 mg/dL (7-18)
[2022-09-08 07:00] VITALS: BP 123/77
--- NOTE | 2022-09-08 07:49 | NUR ---
EMPLOYEE COMMUNICATIONS SPECIALIST OPENING NOTES: RECEIVED PATIENT AWAKE IN BED, AOX1-2, AND ABLE TO MAKE NEEDS KNOWN AND FOLLOWS SIMPLE COMMANDS, ON 02 INHALATION VIA NC @2LPM, SPO2 @ 96%. NO SOB NOR RESPIRATORY DISTRESS NOTED. ON TELE MONITORING WITH CURRENT READING OF CONTROLLED AFIB WITH UNDERLYING V-PACING, HR OF 76. IV ACCESSES ON R HAND GAUGE 22, RAC GAUGE 20, RIGHT FEMORAL PICC LINE WITH NS RUNNING @ 75ML/HR RUNNING, CLEAN PATENT AND FLUSHING WELL. TRAVIS CATHETER INTACT AND DRAINING CLEAR YELLOW URINE BY GRAVITY. ALL SAFETY MEASURES MAINTAINED: BED LOCKED AND IN LOWEST POSITION, SIDE RAILS UP X 3, CALL LIGHT AND TRAY TABLE WITHIN EASY REACH . WILL CONTINUE TO MONITOR.
[2022-09-08] MEDS: PANTOPRAZOLE 40 MG TABLET.DR PO SCH (09:04)
--- NOTE | 2022-09-08 10:17 | NUR ---
RN NOTES - SCD PUMPS APPLIED ON BOTH LEGS, NO CONTRAINDICATION. LEFT FOREARM G#20 IV ACCESS, LEAKING, REMOVED SAFELY, NO BLEEDING NOTED.
[2022-09-08] MEDS ORDERED: POTASSIUM CHLORIDE 20 MEQ TAB.PRT.SR PO SCH (11:00)
[2022-09-08] MEDS: INSULIN REGULAR, HUMAN 100 UNIT/ML 3 ML VIAL SQ PRN ×3 (11:46→21:34)
[2022-09-08 12:00] VITALS: BP 116/61
[2022-09-08 16:00] VITALS: BP 129/70
[2022-09-08] MEDS ORDERED: K PHOS NEUTRAL 250 MG TABLET PO ONE (16:00)
--- NOTE | 2022-09-08 18:36 | NUR ---
CREEL OPERATOR CLOSING NOTES: PATIENT AWAKE IN BED, AOX1-2, ABLE TO MAKE NEEDS KNOWN AND FOLLOWS SIMPLE COMMANDS, MUMBLES WORDS, STILL ON 02 INHALATION VIA NC @2LPM, SPO2 @ 96%. NO S/SX OF RESPIRATORY DISTRESS. ON TELE MONITORING WITH CURRENT READING OF CONTROLLED AFIB WITH UNDERLYING V-PACING, HR OF 80. IV ACCESSES ON R HAND GAUGE 22 AND RIGHT FEMORAL PICC LINE WITH NS RUNNING @ 75ML/HR RUNNING, CLEAN PATENT AND FLUSHING WELL. TRAVIS CATHETER INTACT AND DRAINED 650 ML OF CLEAR YELLOW URINE. ALL NEEDS MET, ALL DUE MEDS GIVEN. ASPIRATION PRECAUTION MAINTAINED. ALL SAFETY MEASURES KEPT: BED LOCKED AND IN LOWEST POSITION, SIDE RAILS UP X 3, CALL LIGHT AND TRAY TABLE WITHIN EASY REACH .WILL ENDORSE TO PATTERN FINISHER NURSE.
--- NOTE | 2022-09-08 19:30 | NUR ---
DIRECTOR WEIGHTS AND MEASURES OPENING NOTE RECEIVED PATIENT IN BED, WITH EYES CLOSED BUT EASY TO AROUSE AND RESPONDS TO VERBAL AND TACTILE STIMULI. AFEBRILE AND NOT IN ANY FORM OF ACUTE DISTRESS. ON O2 INHALATION VIA NASAL CANNULA AT 2LPM. ON TELE MONITORING WITH CURRENT READING OF CONTROLLED A-FIB WITH V PACING 80. WITH IV ACCESS ON RAC 20 RUNNING WITH NS AT 75ML/HR AND RIGHT FEMORAL PICC LINE-SL. SAFETY MEASURES IN PLACE. KEPT BED IN LOCKED AND IN LOW POSITION. SIDE RAILS UP X2. CALL LIGHT WITHIN EASY REACH.
[2022-09-08 20:00] VITALS: BP 132/67
[2022-09-08] MEDS: IV NS 0.9% 1,000 ML IV PRN (20:47)
[2022-09-09] VITALS: BP 129/66
--- NOTE | 2022-09-09 00:55 | NUR ---
RETIREMENT SALES CONSULTANT NOTE CALLED PHARMACY AND SPOKE WITH SONIA TO VERIFY ORDER FOR CEFEPIME Q12HRS THAT WAS GIVEN ON 2100 THEN ANOTHER ORDER FOR CEFEPIME Q24HRS DUE ON 0200. PER SONIA, KIDNEY FUNCTION IS GETTING BETTER PER LAB RESULT AND THEY MIGHT CHANGED IT FROM Q24HRS. TO Q12HRS. PHARMACIST THEN ADVISED NOT TO GIVE CEFEPIME THAT IS DUE AT 0200. ORDER NOTED AND CARRIED OUT.
[2022-09-09 05:32] VITALS: BP 141/73
[2022-09-09 05:52] LABS: BASOPHILS % (AUTO) 0.1 % (0.0-2.0); EOSINOPHILS % (AUTO) 0.5 % (0.0-6.0); HEMATOCRIT 31 % (39-51); HEMOGLOBIN 10.3 g/dL (13.5-17.5); LYMPHOCYTES # (AUTO) 1.1 K/uL (0.8-4.8); LYMPHOCYTES % (AUTO) 19.8 % (20.0-44.0); MEAN CORPUSCULAR HGB CONC 33 g/dl (31.0-36.0); MEAN CORPUSCULAR VOLUME 99 fL (80-96); MONOCYTES # (AUTO) 0.6 K/uL (0.1-1.30); MONOCYTES % (AUTO) 11.5 % (2.0-12.0); NEUTROPHILS # (AUTO) 3.6 K/uL (1.8-8.9); NEUTROPHILS % (AUTO) 68.1 % (43.0-81.0); PLATELET COUNT (AUTO) 139 K/uL (150-450); RED BLOOD CELL COUNT(AUTO) 3.15 MIL/uL (4.5-6.0); WHITE BLOOD COUNT (AUTO) 5.3 K/uL (4.3-11.0)
[2022-09-09 06:10] LABS: ALBUMIN 2.4 g/dL (3.4-5.0); BILIRUBIN,TOTAL 1.3 mg/dL (0.2-1.0); CALCIUM, SERUM 8.3 mg/dL (8.5-10.1); CREATININE 1.1 mg/dL (0.6-1.3); MAGNESIUM 1.9 mg/dL (1.8-2.4); PHOSPHORUS 2.3 mg/dL (2.5-4.9); POTASSIUM 3.3 mmol/L (3.5-5.1); TOTAL PROTEIN, SERUM 5.4 g/dL (6.4-8.2)
--- NOTE | 2022-09-09 06:29 | NUR ---
ADMINISTRATIVE OFFICE ASSISTANT CLOSING NOTE PATIENT IN BED, ASLEEP, BUT EASY TO AROUSE AND RESPONDS TO VERBAL AND TACTILE STIMULI. AFEBRILE AND NOT IN ANY FORM OF ACUTE DISTRESS. ON O2 INHALATION VIA NASAL CANNULA AT 2LPM. ON TELE MONITORING WITH CURRENT READING OF CONTROLLED A-FIB WITH V PACING 70. WITH IV ACCESS ON RAC 20 RUNNING WITH NS AT 75ML/HR AND RIGHT FEMORAL PICC LINE-SL. MONITORED FOR ANY S/SX. OF HYPO/HYPERGLYCEMIA. MEDICATED ORDERED. CONTINUOUS ON IV ATB, MONITORED FOR ANY ADVERSE REACTION. SAFETY MEASURES IN PLACE. KEPT BED IN LOCKED AND IN LOW POSITION. SIDE RAILS UP X2. CALL LIGHT WITHIN EASY REACH. ALL NURSING NEEDS ATTENDED. ENDORSED TO INCOMING SHIFT FOR CONTINUITY OF CARE.
[2022-09-09] MEDS: BLOOD SUGAR DIAGNOSTIC 1 EACH STRIP IN SCH ×4 (06:42→21:37)
[2022-09-09] MEDS: INSULIN REGULAR, HUMAN 100 UNIT/ML 3 ML VIAL SQ PRN ×4 (06:44→21:41)
--- NOTE | 2022-09-09 07:45 | NUR ---
SACK REPAIRER OPENING NOTE RECEIVED PATIENT IN BED, WITH EYES CLOSED BUT EASY TO AROUSE AND RESPONDS TO VERBAL AND TACTILE STIMULI. AFEBRILE AND NOT IN ANY FORM OF ACUTE DISTRESS. ON O2 INHALATION VIA NASAL CANNULA AT 2LPM. ON TELE MONITORING WITH CURRENT READING OF CONTROLLED A-FIB WITH V PACING 80. WITH IV ACCESS ON RAC 20 RUNNING WITH NS AT 75ML/HR AND RIGHT FEMORAL PICC LINE-SL PATENT, INTACT, AND INFUSING WELL. SAFETY MEASURES IN PLACE. KEPT BED IN LOCKED AND IN LOW POSITION. SIDE RAILS UP X2. CALL LIGHT WITHIN EASY REACH. WILL CONTINUE TO MONITOR PATIENT.
[2022-09-09 08:27] VITALS: BP 124/84
[2022-09-09] MEDS: PANTOPRAZOLE 40 MG TABLET.DR PO SCH (08:43)
[2022-09-09] MEDS ORDERED: POTASSIUM CHLORIDE 20 MEQ TAB.PRT.SR PO ONE (09:30)
[2022-09-09] MEDS: CEFEPIME 2 GM in IV D5W 100 ML IV SCH (10:33)
[2022-09-09] MEDS: IV NS 0.9% 1,000 ML IV PRN (10:40)
[2022-09-09] MEDS: ENOXAPARIN SODIUM 40 MG/0.4 ML DISP.SYRIN SQ SCH (10:56)
[2022-09-09] MEDS ORDERED: POTASSIUM CHLORIDE 20 MEQ POWDER PACKET PO ONE (11:00)
[2022-09-09 11:56] VITALS: BP 126/62
[2022-09-09 13:37] LABS: BAND % (MANUAL) 3 % (0.0-5.0); BASOPHILS % (MANUAL) 0 % (0.0-2.0); EOSINOPHILS % (MANUAL) 0 % (0-4); LYMPHOCYTES % (MANUAL) 16 % (16-48); MONOCYTES % (MANUAL) 9 % (0-11.0); NEUTROPHILS % (MANUAL) 72 (42-76)
[2022-09-09] MEDS: CEFTRIAXONE 2 G in IV D5W 100 ML IV SCH (13:45)
--- NOTE | 2022-09-09 15:52 | NUR ---
RN NOTE PATIENT DC TO TELE. TELE MONITOR HANDED TO JESSICA. WILL CONTINUE TO MONITOR PATIENT.
[2022-09-09] MEDS ORDERED: NEUTRA PHOS 1 POWD.PACKET PO ONE (16:00)
[2022-09-09 16:13] VITALS: BP 132/76
[2022-09-09] MEDS: IV 1/2NS 1000 ML 1,000 ML IV PRN (16:56)
--- NOTE | 2022-09-09 18:18 | NUR ---
RN CLOSING NOTE PATIENT AWAKE IN BED, A/0X3, AFEBRILE AND NOT IN ANY FORM OF ACUTE DISTRESS. ON O2 INHALATION VIA NASAL CANNULA AT 2LPM. WITH IV ACCESS ON RAC 20G RUNNING WITH 1/2 NS AT 75MLS/HR. PATENT, INTACT, AND INFUSING WELL. RIGHT FEMORAL PICC LINE-SL PATENT AND INTACT. DUE MEDS GIVEN. CONTINUOUS ON IV ATB AND MONITORED FOR ANY ADVERSE REACTION. SAFETY MEASURES IN PLACE. KEPT BED IN LOCKED AND IN LOW POSITION. SIDE RAILS UP X2. CALL LIGHT WITHIN EASY REACH. ALL NURSING NEEDS ATTENDED. WILL ENDORSE TO THE CLINICAL RESEARCH ADMINISTRATOR NURSE FOR CONTINUITY OF CARE.
--- NOTE | 2022-09-09 19:30 | NUR ---
MS RN OPENING NOTE RECEIVED PATIENT IN BED, WITH EYES CLOSED BUT EASY TO AROUSE AND RESPONSIVE. ABLE TO ANSWER QUESTIONS CORRECTLY. AFEBRILE AND NOT IN ANY FORM OF ACUTE DISTRESS. ON O2 INHALATION VIA NASAL CANNULA AT 2LPM. WITH IV ACCESS ON RAC 20 RUNNING WITH 1/2 NS AT 75ML/HR AND RIGHT FEMORAL PICC LINE-SL. SAFETY MEASURES IN PLACE. KEPT BED IN LOCKED AND IN LOW POSITION. SIDE RAILS UP X2. CALL LIGHT WITHIN EASY REACH.
[2022-09-09 20:00] VITALS: BP_SYST 111; BP_SYST 146; BP_DIAS 75; BP_DIAS 99
[2022-09-10] MEDS: IV 1/2NS 1000 ML 1,000 ML IV PRN ×2 (04:56→20:32)
--- NOTE | 2022-09-10 06:30 | NUR ---
MS RN CLOSING NOTE PATIENT IN BED, ASLEEP, BUT EASY TO AROUSE AND RESPONDS TO VERBAL AND TACTILE STIMULI. AFEBRILE AND NOT IN ANY FORM OF ACUTE DISTRESS. ON O2 INHALATION VIA NASAL CANNULA AT 2LPM. WITH IV ACCESS ON RAC 20 RUNNING WITH 1/2 NS AT 75ML/HR AND RIGHT FEMORAL PICC LINE-SL. MONITORED FOR ANY S/SX. OF HYPO/HYPERGLYCEMIA. DUE MEDS GIVEN. CONTINUOUS ON IV ATB, MONITORED FOR ANY ADVERSE REACTION. SAFETY MEASURES IN PLACE. KEPT BED IN LOCKED AND IN LOW POSITION. SIDE RAILS UP X2. CALL LIGHT WITHIN EASY REACH. ALL NURSING NEEDS ATTENDED. ENDORSED TO INCOMING SHIFT FOR CONTINUITY OF CARE.
[2022-09-10] MEDS: BLOOD SUGAR DIAGNOSTIC 1 EACH STRIP IN SCH ×4 (06:43→21:10)
[2022-09-10 06:51] LABS: BASOPHILS % (AUTO) 0.2 % (0.0-2.0); EOSINOPHILS % (AUTO) 0.3 % (0.0-6.0); HEMATOCRIT 31 % (39-51); HEMOGLOBIN 10.3 g/dL (13.5-17.5); LYMPHOCYTES # (AUTO) 1.1 K/uL (0.8-4.8); LYMPHOCYTES % (AUTO) 18.5 % (20.0-44.0); MEAN CORPUSCULAR HGB CONC 33 g/dl (31.0-36.0); MEAN CORPUSCULAR VOLUME 100 fL (80-96); MONOCYTES # (AUTO) 0.7 K/uL (0.1-1.30); MONOCYTES % (AUTO) 11.6 % (2.0-12.0); NEUTROPHILS # (AUTO) 4.2 K/uL (1.8-8.9); NEUTROPHILS % (AUTO) 69.4 % (43.0-81.0); PLATELET COUNT (AUTO) 162 K/uL (150-450); RED BLOOD CELL COUNT(AUTO) 3.13 MIL/uL (4.5-6.0)
[2022-09-10 07:22] LABS: CALCIUM, SERUM 8.1 mg/dL (8.5-10.1); CREATININE 1.1 mg/dL (0.6-1.3); MAGNESIUM 1.9 mg/dL (1.8-2.4); PHOSPHORUS 2.6 mg/dL (2.5-4.9)
--- NOTE | 2022-09-10 07:29 | NUR ---
MS TORRI OPENING NOTE (DAY SHIFT) RECEIVED PATIENT IN BED, WITH EYES CLOSED BUT EASY TO AROUSE AND RESPONDS TO VERBAL AND TACTILE STIMULI. AFEBRILE AND NOT IN ANY FORM OF ACUTE DISTRESS. ON O2 INHALATION VIA NASAL CANNULA AT 2LPM. PATIENT HAS IV ACCESS ON RIGHT AC 20 GAUGE INFUSING WITH NS AT 75ML/HR AND RIGHT FEMORAL PICC LINE-SL PATENT, INTACT, AND FLUSHING WELL. SAFETY MEASURES IN PLACE. KEPT BED IN LOCKED AND IN LOW POSITION. SIDE RAILS UP X2. CALL LIGHT WITHIN EASY REACH. WILL CONTINUE TO MONITOR PATIENT. Addendum: 09/10/22 at 1523 by TOBIAS PADILLA RN The right femoral insertion site Bio-patch under the PICC line dressing was saturated with blood. Removed soiled dressing/Bio-patch and applied new central line dressing with Bio-patch using aseptic cleaning/application technique. No other signs of IV therapy complications noted. All three lumens of PICC line flushed easily with 20 mLs NS flush to each lumen.
[2022-09-10 08:15] VITALS: BP 140/70
[2022-09-10] MEDS: ENOXAPARIN SODIUM 40 MG/0.4 ML DISP.SYRIN SQ SCH (09:34)
[2022-09-10] MEDS: PANTOPRAZOLE 40 MG TABLET.DR PO SCH (10:50)
[2022-09-10] MEDS: POTASSIUM CHLORIDE 20 MEQ TAB.PRT.SR PO SCH ×3 (10:50→13:10)
[2022-09-10] MEDS: INSULIN REGULAR, HUMAN 100 UNIT/ML 3 ML VIAL SQ PRN ×3 (12:05→21:16)
[2022-09-10] MEDS: CEFTRIAXONE 2 G in IV D5W 100 ML IV SCH (13:37)
[2022-09-10 15:58] VITALS: BP 115/78
--- NOTE | 2022-09-10 19:03 | NUR ---
RN CLOSING NOTE PATIENT AWAKE IN BED, A/0X 2, AFEBRILE AND NOT IN ANY FORM OF ACUTE DISTRESS. ON O2 INHALATION VIA NASAL CANNULA AT 2LPM. WITH IV ACCESS ON RAC 20G INFUSING WITH 1/2 NS AT 75MLS/HR. PATENT, INTACT, AND INFUSING WELL. RIGHT FEMORAL PICC LINE-SL PATENT AND INTACT. DUE MEDS GIVEN. CONTINUES ON IV ATB AND MONITORED FOR ANY ADVERSE REACTION. SAFETY MEASURES IN PLACE. KEPT BED IN LOCKED AND IN LOW POSITION. SIDE RAILS UP X 3. CALL LIGHT WITHIN EASY REACH. ALL NURSING NEEDS ATTENDED. WILL ENDORSE TO THE DIRECTOR CLOUD TRANSFORMATION NURSE FOR CONTINUITY OF CARE.
--- NOTE | 2022-09-10 19:30 | NUR ---
MS RN OPENING NOTE RECEIVED PATIENT IN BED, AWAKE, MORE ALERT AND RESPONSIVE. ABLE TO ANSWER QUESTIONS CORRECTLY. AFEBRILE AND NOT IN ANY FORM OF ACUTE DISTRESS. ON O2 INHALATION VIA NASAL CANNULA AT 2LPM. WITH IV ACCESS ON RAC 20 RUNNING WITH 1/2 NS AT 75ML/HR AND RIGHT FEMORAL PICC LINE-SL. SAFETY MEASURES IN PLACE. KEPT BED IN LOCKED AND IN LOW POSITION. SIDE RAILS UP X2. CALL LIGHT WITHIN EASY REACH.
[2022-09-10 20:00] VITALS: BP 126/74
--- NOTE | 2022-09-11 06:22 | NUR ---
MS RN CLOSING NOTE PATIENT IN BED, ASLEEP BUT EASY TO AROUSE AND RESPONDS TO VEBRAL AND TACTILE STIMULI. AFEBRILE AND NOT IN ANY FORM OF ACUTE DISTRESS. ON O2 INHALATION VIA NASAL CANNULA AT 2LPM. WITH IV ACCESS ON RAC 20 RUNNING WITH 1/2 NS AT 75ML/HR AND RIGHT FEMORAL PICC LINE-SL. WITH INTACT TRAVIS CATHETER, DRAINING WELL WITH YELLOW URINE OUTPUT, NO HEMATURIA OR SEDIMENTS NOTED WITH APPROX. 840ML URINE OUTPUT DURING THE SHIFT. MONITORED FOR ANY S/SX. OF HYPO/HYPERGLYCEMIA. MEDICATED ORDERED. TURNED AND REPOSITIONED EVERY 2 HOURS AND TOLERATED TO PROMOTE PROPER CIRCULATION AND COMFORT. SAFETY MEASURES IN PLACE. KEPT BED IN LOCKED AND IN LOW POSITION. SIDE RAILS UP X2. CALL LIGHT WITHIN EASY REACH. ALL NURSING NEEDS ATTENDED. ENDORSED TO INCOMING SHIFT FOR CONTINUITY OF CARE.
[2022-09-11] MEDS: BLOOD SUGAR DIAGNOSTIC 1 EACH STRIP IN SCH ×4 (06:32→22:00)
[2022-09-11 07:00] VITALS: BP 135/58
[2022-09-11 07:28] LABS: BASOPHILS % (AUTO) 0.2 % (0.0-2.0); EOSINOPHILS % (AUTO) 0.6 % (0.0-6.0); HEMATOCRIT 29 % (39-51); HEMOGLOBIN 9.7 g/dL (13.5-17.5); LYMPHOCYTES # (AUTO) 1.2 K/uL (0.8-4.8); LYMPHOCYTES % (AUTO) 19.3 % (20.0-44.0); MEAN CORPUSCULAR HGB CONC 33 g/dl (31.0-36.0); MEAN CORPUSCULAR VOLUME 99 fL (80-96); MONOCYTES # (AUTO) 0.5 K/uL (0.1-1.30); MONOCYTES % (AUTO) 8.8 % (2.0-12.0); NEUTROPHILS # (AUTO) 4.4 K/uL (1.8-8.9); NEUTROPHILS % (AUTO) 71.1 % (43.0-81.0); PLATELET COUNT (AUTO) 189 K/uL (150-450); RED BLOOD CELL COUNT(AUTO) 2.97 MIL/uL (4.5-6.0); WHITE BLOOD COUNT (AUTO) 6.1 K/uL (4.3-11.0)
--- NOTE | 2022-09-11 07:28 | NUR ---
RN OPENING NOTE RECEIVED PATIENT IN BED AWAKE, NO SIGNS OF ACUTE DISTRESS NOTED. ON O2 INHALATION @1LPM VIA N/C, NO SOB NOTED, BREATHING EVEN AND UNLABORED. NO S/SX OF PAIN. NOTED WITH IV ACCESS ON RIGHT AC #20G, INTACT AND PATENT RUNNING 1/2 NS @75 ML/HR. WITH FEMORAL PICC LINE, INTACT AND PATENT, SALINE LOCKED. F/C INTACT DRAINING CLEAR YELLOW URINE VIA GRAVITY. SAFETY MEASURE IN PLACE.BED IN LOW AND LOCKED POSITION, SIDE RAILS UP X3, CALL LIGHT PLACED WITHIN EASY REACH. WILL CONTINUE TO MONITOR PATIENT.
[2022-09-11 07:40] LABS: CALCIUM, SERUM 7.7 mg/dL (8.5-10.1); CARBON DIOXIDE 25 mmol/L (21-32); CHLORIDE 110 mmol/L (98-107); CREATININE 0.8 mg/dL (0.6-1.3); GLUCOSE 103 mg/dL (74-106); MAGNESIUM 1.6 mg/dL (1.8-2.4); PHOSPHORUS 2.3 mg/dL (2.5-4.9); SODIUM SERUM 144 mmol/L (136-145); UREA NITROGEN, BLOOD 19 mg/dL (7-18)
[2022-09-11] MEDS: PANTOPRAZOLE 40 MG TABLET.DR PO SCH (08:55)
[2022-09-11] MEDS: ENOXAPARIN SODIUM 40 MG/0.4 ML DISP.SYRIN SQ SCH (08:56)
[2022-09-11] MEDS: IV 1/2NS 1000 ML 1,000 ML IV PRN (10:09)
[2022-09-11] MEDS: Magnesium 1GM/D5W 100ML PREMIX 100 ML IV SCH ×2 (10:19→11:25)
[2022-09-11] MEDS: POTASSIUM CHLORIDE 20 MEQ POWDER PACKET PO SCH ×3 (10:20→12:32)
[2022-09-11] MEDS ORDERED: K PHOS NEUTRAL 250 MG TABLET PO ONE (10:30)
[2022-09-11] MEDS ORDERED: NEUTRA PHOS 1 POWD.PACKET NG ONE (10:30)
[2022-09-11] MEDS ORDERED: POTASSIUM CL. PREMIX PERIPHER. 50 ML IV SCH (10:30)
[2022-09-11] MEDS: INSULIN REGULAR, HUMAN 100 UNIT/ML 3 ML VIAL SQ PRN ×2 (12:06→17:22)
[2022-09-11] MEDS: CEFTRIAXONE 2 G in IV D5W 100 ML IV SCH (12:32)
[2022-09-11 16:00] VITALS: BP 136/68
--- NOTE | 2022-09-11 18:45 | NUR ---
RN CLOSING NOTE PATIENT LAYING IN BED ASLEEP AND EASILY AROUSED, WITH NO SIGNS OF ACUTE DISTRESS NOTED. DR ORDERED TO KEEP PT ABOVE 90% ON ROOM AIR. PT SPO2 AT 95%. NO SOB NOTED AND BREATHING EVEN AND UNLABORED. NO S/SX OF PAIN. NOTED WITH IV ACCESS ON RIGHT AC #20G, INTACT AND PATENT RUNNING 1/2 NS @60 ML/HR. WITH FEMORAL PICC LINE, INTACT AND PATENT, SALINE LOCKED. F/C INTACT DRAINING CLEAR YELLOW URINE VIA GRAVITY WITH OUTPUT AT 825ML. SAFETY MEASURE IN PLACE.BED IN LOW AND LOCKED POSITION, SIDE RAILS UP X3, CALL LIGHT PLACED WITHIN EASY REACH. WILL ENDORSE TO NIGHTSHIFT FOR [place].
--- NOTE | 2022-09-11 19:50 | NUR ---
MS RN OPENING NOTE RECEIVED PATIENT IN BED AWAKE. PT A/O X2, WITH CONFUSION. NO SIGNS OF ACUTE DISTRESS NOTED. ON ROOM AIR, TOLERATING RA WELL. NO SOB NOTED, BREATHING EVEN AND UNLABORED. NO S/SX OF PAIN. IV ACCESS TO RIGHT AC #20G, INTACT AND PATENT RUNNING 1/2 NS @ 60 ML/HR. WITH FEMORAL PICC LINE, INTACT AND PATENT, SALINE LOCKED. F/C INTACT DRAINING CLEAR YELLOW URINE VIA GRAVITY. SAFETY MEASURE IN PLACE. BED IN LOW AND LOCKED POSITION, SIDE RAILS UP X3, CALL LIGHT WITHIN EASY REACH. WILL CONTINUE TO MONITOR PATIENT.
[2022-09-11 20:00] VITALS: BP 140/66
[2022-09-12] MEDS: IV 1/2NS 1000 ML 1,000 ML IV PRN (04:48)
--- NOTE | 2022-09-12 06:40 | NUR ---
MS RN CLOSING NOTE PATIENT SLEEPING IN BED. PT A/O X2, WITH CONFUSION. NO ACUTE DISTRESS NOTED. ON ROOM AIR, TOLERATING RA WELL. NO SOB NOTED, BREATHING EVEN AND UNLABORED. NO S/SX OF PAIN. IV ACCESS TO RIGHT AC #20G, INTACT AND PATENT RUNNING 1/2 NS @ 60 ML/HR. WITH FEMORAL PICC LINE, INTACT AND PATENT, SALINE LOCKED. F/C INTACT DRAINING CLEAR YELLOW URINE VIA GRAVITY, WITH URINE OUTPUT: 700ML. SAFETY MEASURE IN PLACE. BED IN LOW AND LOCKED POSITION, SIDE RAILS UP X3, CALL LIGHT WITHIN EASY REACH. WILL ENDORSE PATIENT TO INCOMING SHIFT NURSE FOR CONTINUITY OF CARE.
[2022-09-12] MEDS: BLOOD SUGAR DIAGNOSTIC 1 EACH STRIP IN SCH ×4 (06:48→23:51)
[2022-09-12] MEDS: INSULIN REGULAR, HUMAN 100 UNIT/ML 3 ML VIAL SQ PRN ×3 (06:49→16:56)
[2022-09-12 07:18] LABS: CALCIUM, SERUM 7.8 mg/dL (8.5-10.1); CREATININE 0.8 mg/dL (0.6-1.3); MAGNESIUM 1.9 mg/dL (1.8-2.4); PHOSPHORUS 2.3 mg/dL (2.5-4.9); POTASSIUM 3.3 mmol/L (3.5-5.1)
--- NOTE | 2022-09-12 07:23 | NUR ---
RN OPENING NOTE RECEIVED PATIENT IN BED ASLEEP, EASILY AWAKENED. NO SIGNS OF ACUTE DISTRESS NOTED. ON ROOM AIR, NO SOB NOTED, BREATHING EVEN AND UNLABORED. NO S/SX OF PAIN. NOTED WITH IV ACCESS ON RIGHT AC #20G, INTACT AND PATENT RUNNING 1/2 NS @60 ML/HR. WITH FEMORAL PICC LINE, INTACT AND PATENT, SALINE LOCKED. F/C INTACT DRAINING CLEAR YELLOW URINE VIA GRAVITY. SAFETY MEASURE IN PLACE. BED IN LOW AND LOCKED POSITION, SIDE RAILS UP X3, CALL LIGHT PLACED WITHIN EASY REACH. WILL CONTINUE TO MONITOR PATIENT.
[2022-09-12] MEDS: PANTOPRAZOLE 40 MG TABLET.DR PO SCH (08:23)
[2022-09-12] MEDS: ENOXAPARIN SODIUM 40 MG/0.4 ML DISP.SYRIN SQ SCH (08:24)
[2022-09-12 08:45] VITALS: BP 139/65
[2022-09-12] MEDS ORDERED: POTASSIUM CHLORIDE 20 MEQ TAB.PRT.SR PO SCH (11:00)
[2022-09-12] MEDS ORDERED: K PHOS NEUTRAL 250 MG TABLET PO ONE (11:00)
[2022-09-12] MEDS: CEFTRIAXONE 2 G in IV D5W 100 ML IV SCH (12:07)
[2022-09-12 16:09] VITALS: BP 140/80
--- NOTE | 2022-09-12 18:54 | NUR ---
RN CLOSING NOTE PATIENT IN BED ASLEEP, EASILY AWAKENED. NO SIGNS OF ACUTE DISTRESS NOTED. REMAINS STABLE ON ROOM AIR, NO SOB NOTED, BREATHING EVEN AND UNLABORED. NO S/SX OF PAIN. WITH IV ACCESS ON RIGHT AC #20G, INTACT AND PATENT RUNNING 1/2 NS @60 ML/HR. WITH FEMORAL PICC LINE, INTACT AND PATENT, SALINE LOCKED. F/C INTACT DRAINING CLEAR YELLOW URINE VIA GRAVITY. SAFETY MEASURE MAINTAINED. TURNED AND REPOSITIONED. BED IN LOW AND LOCKED POSITION, SIDE RAILS UP X3, CALL LIGHT PLACED WITHIN EASY REACH. WILL ENDORSE TO NEXT SHIFT FOR CONTINUITY OF CARE.
--- NOTE | 2022-09-12 19:40 | NUR ---
MS RN OPENING NOTE RECEIVED PATIENT IN BED; AWAKE, ALERT AND ORIENTED X 1-2. ON ROOM AIR; TOLERATING WELL. NOT IN ANY FORM OF RESPIRATORY OR CARDIAC DISTRESS. NO S/SX OF PAIN OR DISCOMFORT NOTED AT THIS TIME. WITH IV ACCESS ON RIGHT AC 20g; PATENT AND INTACT RUNNING WITH 0.45% NS 1L REGULATED @ 60 ML/HR; FLUSHES WELL. WITH RIGHT FEMORAL PICC LINE; INTACT AND SALINE LOCKED. SAFETY PRECAUTIONS INITIATED: CALL LIGHT AND TABLE WITHIN REACH, SIDE RAILS UP X 2, BED IN LOWEST LOCKED POSITION. WILL CONTINUE TO MONITOR THROUGHOUT SHIFT.
[2022-09-12 20:00] VITALS: BP 140/71
[2022-09-13] MEDS: IV 1/2NS 1000 ML 1,000 ML IV PRN (03:23)
[2022-09-13] MEDS: BLOOD SUGAR DIAGNOSTIC 1 EACH STRIP IN SCH ×3 (06:38→17:30)
--- NOTE | 2022-09-13 06:55 | NUR ---
MS RN CLOSING NOTE PATIENT IN BED; AWAKE, A/O X 2. STABLE ON ROOM AIR. IN NO ACUTE DISTRESS. NO S/SX OF PAIN OR DISCOMFORT NOTED AT THIS TIME. WITH IV ACCESS ON RIGHT AC 20g; PATENT AND INTACT RUNNING WITH 0.45% NS 1L REGULATED @ 60 ML/HR; FLUSHES WELL. WITH RIGHT FEMORAL PICC LINE; INTACT AND SALINE LOCKED. SAFETY PRECAUTIONS MAINTAINED: CALL LIGHT AND TABLE WITHIN REACH, SIDE RAILS UP X 2, BED IN LOWEST LOCKED POSITION. ENDORSED TO MORNING SHIFT FOR CONTINUITY OF CARE.
[2022-09-13 07:27] LABS: CALCIUM, SERUM 7.9 mg/dL (8.5-10.1); CARBON DIOXIDE 27 mmol/L (21-32); CHLORIDE 106 mmol/L (98-107); CREATININE 0.7 mg/dL (0.6-1.3); GLUCOSE 104 mg/dL (74-106); PHOSPHORUS 2.7 mg/dL (2.5-4.9); POTASSIUM 3.3 mmol/L (3.5-5.1); SODIUM SERUM 142 mmol/L (136-145); UREA NITROGEN, BLOOD 13 mg/dL (7-18)
--- NOTE | 2022-09-13 07:50 | NUR ---
OPENING NOTE PATIENT RECEIVED A/O x1-2, ON ROOM AIR WITH NO S/S OF SOB OR DISTRESS. INCONTINENT: USING F/C, BR. IV ACCESS RAC G20, INTACT AND PATENT, RUNNING 1/2 NS @60ML/HR AND R FEMORAL PICC LINE, CLEAN AND DRY, SL. PATIENT HAS CLEAR BILATERAL LUNG SOUNDS AND ACTIVE BOWEL SOUNDS. EDEMA NOTED ON THE LEFT HAND, AND LEFT FOOT, NON PITTING. NO S/S OF PAIN. FALL AND SAFETY PRECAUTION IN PLACE: BED LOCKED AND AT THE LOWEST POSITION, SRx2, CALL LIGHT WITHIN REACH
[2022-09-13] MEDS: PANTOPRAZOLE 40 MG TABLET.DR PO SCH (08:35)
[2022-09-13] MEDS: ENOXAPARIN SODIUM 40 MG/0.4 ML DISP.SYRIN SQ SCH (08:38)
[2022-09-13 08:57] VITALS: BP 155/77
[2022-09-13] MEDS ORDERED: POTASSIUM CHLORIDE 20 MEQ TAB.PRT.SR PO SCH (10:30)
--- NOTE | 2022-09-13 11:11 | NUR ---
MEDICATION NOTE HELD POTASSIUM TAB PO, REQUESTED POTASSIUM POWDER, PATINE ON PUREE DIET.
[2022-09-13] MEDS ORDERED: POTASSIUM CHLORIDE 20 MEQ POWDER PACKET PO SCH (11:30)
[2022-09-13] MEDS: INSULIN REGULAR, HUMAN 100 UNIT/ML 3 ML VIAL SQ PRN (12:34)
[2022-09-13] MEDS: CEFTRIAXONE 2 G in IV D5W 100 ML IV SCH (13:53)
[2022-09-13 16:23] VITALS: BP 139/66
--- NOTE | 2022-09-13 17:55 | NUR ---
DISCHARGE NOTE PATIENT DISCHARGE IN A STABLE MEDICAL CONDITION. A/OX2 , ON ROOM AIR, NO S/S OF SOB OR DISTRESS AT THIS TIME. V/S TAKEN, STABLE AND RECORDED. RAC G20, IV ACCESS REMOVED, CATHETER TIP INTACT, PRESSURE DRESSING APPLIED. NO S/S OF ACTIVE BLEEDING. R FEMORAL PICC LINE KEPT CLEAN AND DRY, SL. NEEDED FOR CONTINUATION OF IV MEDICATION. F/C TOTAL DAY DRAINAGE 2150CC, PATIENT F/C IN PLACE FOR URINARY BLADDER TRAINING, FACILITY AWARE. NAME ARM WAS REMOVED. ALL BELONGING WERE CHECKED AND BELONGING LIST WAS SIGNED AND PLACED IN CHART. HEALTH TEACHING AND INSTRUCTIONS WERE PROVIDED TO PATIENT/ FAMILY. GAVE REPORT TO NURSE LUIS LVN AT [facility]. PATIENT LEFT VIA GURNEY WITH NO S/S OF DISTRESS ACCOMPANIED BY 2 EMT.
== END 2022-09-13 18:15 | DRG 871 ==
LOC: ER 03:25 → ICU 10:29 → MED 09-07 15:21 → TELE 09-07 15:29 → MED 09-09 13:16
PROVIDERS: ADMIT Nurse Practitioner Acute Care
DX: A41.51 Sepsis due to Escherichia coli [E. coli] (principal); E43 Unspecified severe protein-calorie malnutrition; G92.8 Other toxic encephalopathy; N17.0 Acute kidney failure with tubular necrosis; J96.01 Acute respiratory failure with hypoxia; R65.21 Severe sepsis with septic shock; I50.43 Acute on chronic combined systolic (congestive) and diastolic (congestive) heart failure; J18.9 Pneumonia, unspecified organism; D68.59 Other primary thrombophilia; N39.0 Urinary tract infection, site not specified; I48.20 Chronic atrial fibrillation, unspecified; N13.6 Pyonephrosis; E87.0 Hyperosmolality and hypernatremia; I11.0 Hypertensive heart disease with heart failure; Z20.822 Contact with and (suspected) exposure to COVID-19; Z86.73 Personal history of transient ischemic attack (TIA), and cerebral infarction without residual deficits; Z85.828 Personal history of other malignant neoplasm of skin; Z95.0 Presence of cardiac pacemaker; Z88.8 Allergy status to other drugs, medicaments and biological substances; Z79.01 Long term (current) use of anticoagulants; Z79.84 Long term (current) use of oral hypoglycemic drugs; Z79.899 Other long term (current) drug therapy; B96.89 Other specified bacterial agents as the cause of diseases classified elsewhere; D53.9 Nutritional anemia, unspecified; Z74.01 Bed confinement status; I27.20 Pulmonary hypertension, unspecified; F03.90 Unspecified dementia, unspecified severity, without behavioral disturbance, psychotic disturbance, mood disturbance, and anxiety; E88.09 Other disorders of plasma-protein metabolism, not elsewhere classified; E83.39 Other disorders of phosphorus metabolism; K83.8 Other specified diseases of biliary tract; S90.411A Abrasion, right great toe, initial encounter; X58.XXXA Exposure to other specified factors, initial encounter; Y92.9 Unspecified place or not applicable; F09 Unspecified mental disorder due to known physiological condition; E83.51 Hypocalcemia; E11.9 Type 2 diabetes mellitus without complications; D69.6 Thrombocytopenia, unspecified; E87.6 Hypokalemia; Z51.5 Encounter for palliative care; Z86.14 Personal history of Methicillin resistant Staphylococcus aureus infection; Z87.81 Personal history of (healed) traumatic fracture; Z90.49 Acquired absence of other specified parts of digestive tract
CPT/HCPCS: 36415; 71045-TC; 76705-TC; 76770-TC; 80048-TC; 80053-TC; 80061-TC; 80076-TC; 81001; 82962-TC; 83605-TC; 83735-TC; 83880; 84100-TC; 84484-TC; 85025-TC; 85730-TC; 86803; 87040-TC; 87081-TC; 87086-TC; 87806; 92526; 92611-TC; 93307-TC; 97110-TC; 97112-TC; 97530-TC; A4223; A4624; A6403; C9113; C9803; G0378; J0692; J0696; J1644; J1650; J1815; J3370; J3475; J3480; J3490; J7030; J7040; J7042; J7050; J7060